=== PATIENT | female | born 1965 | race Caucasian/White ===

== ENCOUNTER 2021-02-04 06:35 | Day surgery (SDC) | payer OTHER ==
[2021-02-03 16:21] LABS: Absolute Lymphocytes (CBC) 1.8 K/uL (0.7-4.9); Basophils % 1.3 % (0-1.3); Hematocrit 39.5 % (36.0-45.0); Lymphocytes % 32.7 % (15.3-44.8); MPV 9.5 fL (7.6-11.3); RBC Red Blood Cell Count 4.59 M/uL (3.86-4.86)
[2021-02-03 16:24] LABS: Potassium 3.7 mmol/L (3.5-5.1)
--- NOTE | 2021-02-03 16:39 | RAD REPORT ---
EXAM DESCRIPTION: RAD - Chest Pa And Lat (2 Views) - 02/03/2021 4:13 pm CLINICAL HISTORY: preop, COPD COMPARISON: June 2019 TECHNIQUE: Frontal and lateral views of the chest were obtained. FINDINGS: The lungs are clear. Heart size is normal and central vasculature is within normal limit s. No pleural effusion or pneumothorax seen. No acute bony finding noted. No aortic abnormality. IMPRESSION: No acute cardiopulmonary process. No significant change from comparison study.
[2021-02-04] MEDS ORDERED: CEFOXITIN/SWI 1gm 1 GM/10 ML SYR ONE (07:09)
[2021-02-04] MEDS ORDERED: Ringers Lactate 1,000 ML IV ONE (07:09)
[2021-02-04] MEDS ORDERED: FENTANYL CITR 100 MCG/2 ML ONE (07:16)
[2021-02-04] MEDS ORDERED: propofoL 200 MG/20 ML VIAL IV ONE (07:16)
[2021-02-04] MEDS ORDERED: ROCURONIUM 50 MG/5 ML VIAL IV ONE (07:16)
[2021-02-04] MEDS ORDERED: MIDAZOLAM HCL 2 MG/2 ML INJ ONE (07:17)
[2021-02-04] MEDS ORDERED: LIDOCAINE 2% MPF 5 ML VIAL ONE (07:17)
[2021-02-04] MEDS ORDERED: dexAMETHasone 10 MG/ML VIAL ONE (07:17)
[2021-02-04] MEDS ORDERED: ONDANSETRON 4 MG/2 ML VIAL ONE (07:18)
[2021-02-04] MEDS ORDERED: SCOPOLAMINE HYDROBROMIDE PATCH TD ONE (07:40)
[2021-02-04] MEDS ORDERED: EPHEDRINE SULF 50 MG/ML VIAL ONE (08:07)
[2021-02-04] MEDS ORDERED: KETOROLAC 30 MG/ML INJ ONE (08:41)
[2021-02-04] MEDS ORDERED: GLYCOPYRROLATE 0.2 MG/ML SYR ONE (08:57)
[2021-02-04] MEDS ORDERED: NEOSTIGMINE 1 MG/ML -5 ML ONE (08:58)
[2021-02-04] MEDS ORDERED: TRAMADOL 37.5mg/APAP 325mg PER TAB ONE (10:26)
[2021-02-04 11:37] VITALS: BP 188/79; TEMP 97.3; O2SAT 99
--- NOTE | 2021-02-04 19:10 | OP ---
Date of Procedure: 02/04/2021 Surgeon: Harrison Wong MD [employer]sman: first deyvi Starks. Preoperative Diagnoses: Chronic cholecystitis and biliary dyskinesia. Postoperative Diagnoses: Chronic cholecystitis and biliary dyskinesia. Procedure: Laparoscopic cholecystectomy. Estimated Blood Loss: Minimal. Specimen: Gallbladder. Findings: As above. Anesthesia: General. Complications: None. Patient tolerated procedure in stable condition, taken to Recovery in good general condition. Description Of Procedure: The patient was brought to the OR and placed in supine position. General anesthesia begun. Patient was prepped and draped in the usual sterile fashion. Marcaine 0.5% infilt rated locally. A 15-blade was used to make a 1 cm supraumbilical midline incision. Subcutaneous tis giovanni divided. Fascia identified and divided. #1 Vicryl stay suture was placed. Peritoneal cavity wa s entered with sharp and blunt dissection. 12 mm trocar was placed into the peritoneal cavity under direct vision. Pneumoperitoneum was established. Then, three 5 trocars placed, 1 in the epigastrium just to the right of midline and 2 in the right subcostal region. Laparoscopy revealed chronic infl ammation of the gallbladder with omental adhesions that were taken down with sharp and blunt dissecti on. Bleeding controlled with cautery. The fundus identified, retracted superiorly. Infundibulum id entified, retracted inferolaterally. Cystic duct and cystic artery were clearly identified with blun t dissection. Clips placed. Both structures divided. Cautery used to remove the gallbladder from t he liver bed. Bleeding on the liver bed was controlled with cautery. Gallbladder was retrieved thro ugh the umbilicus via an EndoCatch bag. Right upper quadrant was irrigated. Effluent was clear. No evidence of bleeding or bile leakage appreciated. Subsequently, all trocars were removed under dire ct vision and then stay suture tied to each other to approximate the fascial defect. Subcu wounds ir rigated. Bleeding controlled with cautery. 3-0 chromic used to approximate the subcutaneous tissue and close the skin. Sterile dressing applied. Patient awakened and taken to recovery room in genera l condition. Discharge Note: The patient will go to day surgery and home when stable. Disposition: Home. Condition: Stable. Discharge Instructions: Resume home medications and diet. Activity as tolerated. No heavy lifting. Remove outer dressing in 2 days. Shower. Keep wound clean and dry. Follow up in my office in 2 w eeks. Call for appointment. Ultracet 1 tablet p.o. q.4 p.r.n. pain. Incentive spirometry is yolanda COPPOLA/KVNG Voice ID: [id number] Report ID: [id number]
--- NOTE | 2021-02-04 19:17 | EKG ---
Test Date: 2021-02-03 Test Time: 14:54:50 Academic Affairs Vice President: TYRELL MEASUREMENT RESULTS: Intervals: Rate: 91 MT: 166 QRSD: 92 QT: 364 QTc: 447 [place]: P: 77 MT: 166 QRS: 75 T: 78 INTERPRETIVE STATEMENTS: Normal sinus rhythm Normal ECG Compared to ECG 12/11/2020 13:00:59 No significant changes Electronically Signed On 02-04-21 19:13:55 CDT by Colt Gutierrez
== END 2021-02-04 11:10 | disposition home or self-care (01) ==
LOC: OR 06:35
PROVIDERS: ATTEND Surgery
PROC: 0FT44ZZ Resection of Gallbladder, Percutaneous Endoscopic Approach (ICD-10-PCS; principal; 2021-02-04 07:30)
DX: K81.1 Chronic cholecystitis (principal); K82.8 Other specified diseases of gallbladder
CPT/HCPCS: 93005; 85025; 80048; 36415; 88304; 71046; 47562; J2704; J2250; J3010; J1100; J2710; J7120; J2405

== ENCOUNTER 2022-07-23 13:03 | Emergency (ER) | payer OTHER ==
--- OUTSIDE RECORDS SUMMARY | 2022-07-23 13:07 | XMS REPORT | Continuity of Care Document ---
:1965 Author Organization [facility] t Address [address] [place] [address] Dr. [address]. [address] [place] [address] Care Team Providers Name Role Phone Luiz LUU, Janette Storm Primary Care Physician [phone] Hari Yo MD Attending Clinician RADIOLOGY Attending Clinician Unavailable Radiology Attending Clinician Unavailable DAPHNEY BOND III Attending Clinician Unavailable Doctor Unassigned, [place] Attending Clinician Unavailable JACQUELINE GEORGES Attending Clinician Unavailable Raj Lopez MD Attending Clinician Jacqueline Georges MD Attending Clinician JANETTE HANEY Attending Clinician Unavailable Janette Haney MD Attending Clinician [phone] GIANCARLO MERINO Attending Clinician Unavailable ALEJA WOODSON Attending Clinician Unavailable MD JAMISON Attending Clinician Unavailable KIMANI GRANT Attending Clinician Unavailable CONG ESQUIVEL Attending Clinician Unavailable Frankie, Adc Fam Pob I Attending Clinician Unavailable Cong Esquivel PA-C Attending Clinician IESHA SOLARES Admitting Clinician Unavailable Payers Payer Name Policy Type Policy Number Effective Date Expiration Date S [place] [id number] 2018 EMPLOYEE-[employer] 00:00:00 [employer] 2 [id number] 2021 00:00:00 Problems Condition Condition Condition Status Onset Resolution Last Treating Co mments Source Name Details Category Date Date Treatment Clinician Date Left hip Left hip Disease Active Kelse y pain - Not pain - Not 930 Se ybold Controlled Controlled 00:00: 00 Abnormal Abnormal Disease Active Kelse y gall gall 01-23 Seybold bladder bladder 00:00: diagnostic diagnostic 00 imaging - imaging - Unchanged Unchanged No known No known Disease Unive rs active active ity of problems problems [facility] Allergies, Adverse Reactions, Alerts Allergy Allergy Status Severity Reaction(s) Onset Inactive Treating Comm ents Source Name Type Date Date Clinician Codeine Propensi Active Other (See unknown Me thodi ty to Comments) 02-26 st adverse 00:00: Hospita reaction 00 l s to drug Codeine Propensi Active Other dizziness Radha ey ty to 01-23 Seybold adverse 00:00: reaction 00 s Codeine Drug Active Other - See dizziness U nivers Allergy comments 01-23 ity of 00:00: [address] CODEINE DRUG Active Med Dizziness Univer s INGREDI 01-23 ity of 00:00: [address] Social History Social Habit Start Date Stop Date Quantity Comments Source Exposure to Not sure [facility] SARS-CoV-2 (event) Medica l Branch Tobacco use and 2021-09-13 2021-09-13 Never used [facility] exposure 00:00:00 00:00:00 [facility] Sex Assigned At [address] [facility] 00:00:00 00:00:00 Smoking Status Start Date Stop Date Source Tobacco smoking consumption Meth [facility] unknown Never smoker [facility] Medications Ordered Filled Start Stop Current Ordering Indication Dosage Frequency Signature Comments Components Source Medication Medication Date Date Medication? Clinician (SIG) Name Name meloxicam 2021- No [id number] 15mg QD Take 1 Methodi (Mobic) 15 - 10-20 tablet (15 st mg tablet 00:00: 04:59 mg total) Ho spita 00 :00 by mouth l daily for 30 days. ibuprofen 2021- No [id number] 400mg U nivers (IBU) 09-13 ity of tablet 400 17:45: 16:42 [place] mg 00 :00 [facility] ibuprofen 2021- No [id number] 400mg 400 mg, Univers (IBU) 09-13 Oral, ity of tablet 400 17:45: 16:42 ONCE, 1 Zachary as mg 00 :00 dose, On [facility] Branch 09/13/21 at 1145, Routine vortioxetin Yes Trintellix Univers e 2-19 10 mg ity of (TRIN[place]LLIX 10:10: tablet [place] 10 mg Tab [address] [place] [address] vortioxetin Yes [employer] Univers e 2-19 10 mg ity of (TR[place] 10:10: [place] 10 mg Tab [address] [place] [address] vortioxetin Yes [employer] Univers e 2-19 10 mg ity of (TR[place] 10:10: [place] 10 mg Tab [address] [place] [address] HYDROcodone Yes hydrocodon Univers -acetaminop 2-19 e 5 ity of hen 5-325 10:10: mg-acetami [place] mg tablet 50 nophen 325 Medi mauri mg tablet Branch methocarbam Yes methocarba Univers oL 500 mg 2-19 mol 500 mg ity of tablet 10:10: tablet [address] HYDROcodone Yes hydrocodon Univers -acetaminop 2-19 e 5 ity of hen 5-325 10:10: mg-acetami [place] mg tablet 50 nophen 325 Medi mauri mg tablet Branch methocarbam Yes methocarba Univers oL 500 mg 2-19 mol 500 mg ity of tablet 10:10: tablet [address] HYDROcodone Yes hydrocodon Univers -acetaminop 2-19 e 5 ity of hen 5-325 10:10: mg-acetami [place] mg tablet 50 nophen 325 Medi mauri mg tablet Branch methocarbam Yes methocarba Univers oL 500 mg 2-19 mol 500 mg ity of tablet 10:10: tablet [address] bromphenira Yes [id number] 5mL Take 5 mL Univers mine-pseudo 2-19 by mouth 4 it y of ephedrine-D 00:00: (four[place] (BROMFED 00 times Medical DM) 2-30-10 daily as Bran ch mg/5 mL needed for syrup Congestion /Allergies . bromphenira 0 Yes [id number] 5mL Take 5 mL Univers mine-pseudo 2-19 by mouth 4 it y of ephedrine-D 00:00: (four[place] (BROMFED 00 times Medical DM) 2-30-10 daily as Bran ch mg/5 mL needed for syrup Congestion /Allergies . bromphenira 0 Yes [id number] 5mL Take 5 mL Univers mine-pseudo 2-19 by mouth 4 it y of ephedrine-D 00:00: (four[place] (BROMFED 00 times Medical DM) 2-30-10 daily as Bran ch mg/5 mL needed for syrup Congestion /Allergies . FLUoxetine Yes Univers 20 mg 1-15 ity of capsule 00:00: [address] FLUoxetine Yes Univers 20 mg 1-15 ity of capsule 00:00: [address] FLUoxetine Yes Univers 20 mg 1-15 ity of capsule 00:00: [address] Dexlansopra Yes Dexilant Ke lsey zole 1-04 60 mg Seybold (Dexilant) 16:05: capsule, 60 MG oral 36 delayed Delayed release Release TAKE ONE Capsule (1) CAPSULE(S) BY MOUTH ONCE A DAY. Montelukast Yes 1{each} 1 each K elsey (SINGULAIR) 1-04 daily Seybold 10 MG oral 16:05: Tablet 36 tablet Estradiol Yes Louise 0.05 1-04 Seybold MG/24HR 16:05: transdermal 36 PATCH BIWEEKLY Levocetiriz Yes Louise yan 1-04 Seybold Dihydrochlo 16:05: ride 5 MG 36 oral Tablet amoxicillin Yes TAKE ONE Un filiberto -clavulanat 1-04 (1) ity of e 875-125 00:00: TABLET(S) Zachary as mg per 00 BY MOUTH Medical tablet TWICE A Branch DAY FOR 14 DAYS. amoxicillin Yes TAKE ONE Un filiberto -clavulanat 1-04 (1) ity of e 875-125 00:00: TABLET(S) Zachary as mg per 00 BY MOUTH Medical tablet TWICE A Branch DAY FOR 14 DAYS. amoxicillin Yes TAKE ONE Un filiberto -clavulanat 1-04 (1) ity of e 875-125 00:00: TABLET(S) Zachary as mg per 00 BY MOUTH Medical tablet TWICE A Branch DAY FOR 14 DAYS. Amoxicillin Yes [id number] 1{tbl} Take 1 Louise -Pot 1-04 tablet by Seybold Clavulanate 00:00: mouth 2 875-125 MG 00 times oral Tablet daily buPROPion 2020-07 Yes Univers XL 150 mg 2-26 ity of 24 hr 00:00: [place] tablet [facility] buPROPion 2020-07 Yes Univers XL 150 mg 2-26 ity of 24 hr 00:00: [place] tablet [facility] buPROPion 2020-07 Yes Univers XL 150 mg 2-26 ity of 24 hr 00:00: [place] tablet [facility] estradioL 2020-07 Yes Univers 0.5 mg 2-07 ity of tablet 00:00: [facility] estradioL 2020-07 Yes Univers 0.5 mg 2-07 ity of tablet 00:00: [facility] estradioL 2020-07 Yes Univers 0.5 mg 2-07 ity of tablet 00:00: [facility] rosuvastati 2020-07 Yes Univer s n 5 mg 2-03 ity of tablet 00:00: [facility] rosuvastati 2020-07 Yes Univer s n 5 mg 2-03 ity of tablet 00:00: [facility] rosuvastati 2020-07 Yes Univer s n 5 mg 2-03 ity of tablet 00:00: [facility] DEXILANT 60 2020-07 Yes Univer s mg capsule 2-01 ity of 00:00: [facility] diclofenac 2020-07 Yes Univers 75 mg EC 2-01 ity of tablet 00:00: [facility] levocetiriz 2020-07 Yes Univer s ine 5 mg 2-01 ity of tablet 00:00: [place] 00 [facility] montelukast 2020-07 Yes Univer s 10 mg 2-01 ity of tablet 00:00: [place] [facility] DEXILANT 60 2020-07 Yes Univer s mg capsule 2-01 ity of 00:00: [address] diclofenac 2020-07 Yes Univers 75 mg EC 2-01 ity of tablet 00:00: [address] levocetiriz 2020-07 Yes Univer s ine 5 mg 2-01 ity of tablet 00:00: [place] [facility] montelukast 2020-07 Yes Univer s 10 mg 2-01 ity of tablet 00:00: [address] DEXILANT 60 2020-07 Yes Univer s mg capsule 2-01 ity of 00:00: [address] diclofenac 2020-07 Yes Univers 75 mg EC 2-01 ity of tablet 00:00: [address] levocetiriz 2020-07 Yes Univer s ine 5 mg 2-01 ity of tablet 00:00: [address] montelukast 2020-07 Yes Univer s 10 mg 2-01 ity of tablet 00:00: [address] Bupropion 2020-07 Yes TAKE 1 Louise HCL XL 150 2-01 TABLET Seybold MG OR TB24 00:00: DAILY 00 Fluoxetine 2020-07 Yes TAKE 1 Kelse y HCl 20 MG 2-01 CAPSULE Seybold oral 00:00: DAILY Capsule 00 Rosuvastati 2020-07 Yes TAKE 1 Radha ey n Calcium 5 2-01 TABLET Seybol d MG oral 00:00: DAILY Tablet 00 Dexlansopra Yes Dexilant Ke lsey zole 9-30 60 mg Seybold (Dexilant) 09:42: capsule, 60 MG oral 13 delayed Delayed release Release TAKE ONE Capsule (1) CAPSULE(S) BY MOUTH ONCE A DAY. Montelukast Yes 1{each} 1 each K elsey (SINGULAIR) 9-30 daily Seybold 10 MG oral 09:42: Tablet 13 tablet Estradiol Yes Louise 0.05 9-30 Seybold MG/24HR 09:42: transdermal 13 PATCH BIWEEKLY Levocetiriz Yes Louise ine 9-30 Seybold Dihydrochlo 09:42: ride 5 MG 13 oral Tablet Ibuprofen-F 2020-0 Yes [id number] 1{tbl} Q8H Take 1 Louise amotidine 9-30 tablet by Seybo ld 800-26.6 MG 00:00: mouth oral Tablet 00 every 8 hours as needed Ibuprofen-F 202-0 Yes [id number] 1{tbl} Q8H Take 1 Louise amotidine 9-30 tablet by Seybo ld 800-26.6 MG 00:00: mouth oral Tablet 00 every 8 hours as needed Azithromyci 202-0 2021- No [id number] Take 2 Louise n 250 MG 9-30 10-06 tablets by Seyb old oral Tablet 00:00: 04:59 mouth on 00 :00 day 1 then 1 tablet by mouth daily for 4 days thereafter . methylPREDN 1-0 Yes Take by Uni vers ISolone 4 9-03 mouth. ity of mg tablets 00:00: [address] methylPREDN 1-0 Yes Take by Uni vers ISolone 4 9-03 mouth. ity of mg tablets 00:00: [address] methylPREDN 2020-0 Yes Take by Uni vers ISolone 4 9-03 mouth. ity of mg tablets 00:00: [address] methylPREDN 1-0 Yes [id number] 1{frankie} Take 1 frankie Gil ISolone 4 9-03 by mouth Seybol d MG oral 00:00: See Admin Tablet 00 Instructio Therapy ns Use as Pack directed methylPREDN 1-0 Yes [id number] 1{frankie} Take 1 frankie Gil ISolone 4 9-03 by mouth Seybol d MG oral 00:00: See Admin Tablet 00 Instructio Therapy ns Use as Pack directed doxycycline 2020-0 Yes 100mg Take 100 U nivers hyclate 100 8-21 mg by ity of mg tablet 00:00: mouth. [address] Branch dextrometho 2020-0 Yes 1{tbl} Take 1 Un filiberto rphan-guaif 8-21 tablet by ity of enesin 00:00: mouth [place] 30-600 mg 00 every 12 Medica l per tablet (twelve) Branc h hours. doxycycline 2020-0 Yes 100mg Take 100 U nivers hyclate 100 8-21 mg by ity of mg tablet 00:00: mouth. [place] [address] Medical Branch dextrometho 2020-0 Yes 1{tbl} Take 1 Un filiberto rphan-guaif 8-21 tablet by ity of enesin 00:00: mouth [place] 30-600 mg 00 every 12 Medica l per tablet (twelve) Branc h hours. doxycycline 2020-0 Yes 100mg Take 100 U nivers hyclate 100 8-21 mg by ity of mg tablet 00:00: mouth. [place] [address] Medical Branch dextrometho 2020-0 Yes 1{tbl} Take 1 Un filiberto rphan-guaif 8-21 tablet by ity of enesin 00:00: mouth [place] 30-600 mg 00 every 12 Medica l per tablet (twelve) Branc h hours. Dextrometho 2020-0 Yes [id number] 1{tbl} Take 1 Louise rphan-guaiF 8-21 tablet by Sey bold ENesin 00:00: mouth (Mucinex 00 every 12 DM) 30-600 hours MG oral Tablet 12 Hour Sustained Release Doxycycline 2020-0 Yes [id number] 100mg Take 1 Louise Hyclate 100 8-21 tablet Seybol d MG oral 00:00: (100 mg Tablet 00 total) by mouth 2 times daily Dextrometho 2020-0 Yes [id number] 1{tbl} Take 1 Louise rphan-guaiF 8-21 tablet by Sey bold ENesin 00:00: mouth (Mucinex 00 every 12 DM) 30-600 hours MG oral Tablet 12 Hour Sustained Release Doxycycline 2020-0 Yes [id number] 100mg Take 1 Louise Hyclate 100 8-21 tablet Seybol d MG oral 00:00: (100 mg Tablet 00 total) by mouth 2 times daily Estradiol 2020-0 Yes Louise 0.5 MG oral 6-30 Seybold Tablet 00:00: 00 Estradiol 2020-0 Yes Louise 0.5 MG oral 6-30 Seybold Tablet 00:00: 00 fluticasone 2020-0 Yes Jeremy s -umeclidin- 5-25 ity of vilanter 00:00: [place] (TRELEGY 00 Medical ELLIPTA) Branch 100-62.5-25 mcg DsDv fluticasone 2021-0 Yes Univer s -umeclidin- 5-25 ity of vilanter 00:00: [place] (TRELEGY 00 Medical ELLIPTA) Branch 100-62.5-25 mcg DsDv fluticasone 0 Yes Univer s -umeclidin- 5-25 ity of vilanter 00:00: [place] (TRELEGY 00 Medical ELLIPTA) Branch 100-62.5-25 mcg DsDv Trelegy 0 Yes Louise Ellipta 5-25 Seybold 100-62.5-25 00:00: MCG/INH 00 inhalation AEROSOL POWDER, BREATH ACTIVATED Trelegy Yes Louise Ellipta 5-25 Seybold 100-62.5-25 00:00: MCG/INH 00 inhalation AEROSOL POWDER, BREATH ACTIVATED Rosuvastati 0 Yes 5mg Take 1 Radha ey n Calcium 5 5-24 tablet (5 Sey bold MG oral 00:00: mg total) Tablet 00 by mouth daily Bupropion 0 Yes 150mg Take 1 Kelse y HCL XL 150 5-24 tablet Seybold MG OR TB24 00:00: (150 mg 00 total) by mouth daily Fluoxetine 0 Yes 20mg Take 1 Kelse y HCl 20 MG 5-24 capsule Seybold oral 00:00: (20 mg Capsule 00 total) by mouth daily Diclofenac 2020-0 Yes Louise Sodium 75 5-24 Seybold MG oral 00:00: Tablet 00 Delayed Response Levocetiriz 0 Yes Louise ine 5-24 Seybold Dihydrochlo 00:00: ride 5 MG 00 oral Tablet Diclofenac 2020-0 Yes Louise Sodium 75 5-24 Seybold MG oral 00:00: Tablet 00 Delayed Response Levocetiriz 2020-0 Yes Louise ine 5-24 Seybold Dihydrochlo 00:00: ride 5 MG 00 oral Tablet Fluticasone 2019-0 Yes Louise -Umeclidin- 1-08 Seybold Vilant 00:00: (Trelegy 00 Ellipta) 100-62.5-25 MCG/INH inhalation AEROSOL POWDER, BREATH ACTIVATED Fluticasone 2019-0 Yes Louise -Umeclidin- 1-08 Seybold Vilant 00:00: (Trelegy 00 Ellipta) 100-62.5-25 MCG/INH inhalation AEROSOL POWDER, BREATH ACTIVATED Immunizations Ordered Immunization Filled Immunization Date Status Commen ts Source Name Name Shingles IM 2020-05-06 Completed Louise Seybol d (Shingrix) 00:00:00 Shingles IM 2020-05-06 Completed Louise Seybol d (Shingrix) 00:00:00 Influenza Virus 2020-04-18 Completed Louise Se ybold Vaccine, age 6 00:00:00 months and up Shingles IM 2020-04-18 Completed Louise Seybol d (Shingrix) 00:00:00 Influenza Virus 2020-04-18 Completed Louise Se ybold Vaccine, age 6 00:00:00 months and up Shingles IM 2020-04-18 Completed Louise Seybol d (Shingrix) 00:00:00 Influenza Virus 2019-05-01 Completed Louise Se ybold Vaccine, age 6 00:00:00 months and up Influenza Virus 2019-05-01 Completed Louise Se ybold Vaccine, age 6 00:00:00 months and up Influenza Virus 2018-07-05 Completed Louise Se ybold Vaccine, age 6 00:00:00 months and up Influenza Virus 2018-07-05 Completed Louise Se ybold Vaccine, age 6 00:00:00 months and up Influenza Virus 2015-04-25 Completed Louise Se ybold Vaccine, Unspecified 00:00:00 Formulation Influenza Virus 2015-04-25 Completed Louise Se ybold Vaccine, Unspecified 00:00:00 Formulation Vital Signs Vital Name Observation Time Observation Value Comments Source Systolic blood 2021-09-13 16:09:00 123 mm[Hg] Univer sity of pressure [facility] Diastolic blood 2021-09-13 16:09:00 83 mm[Hg] Unive rsity of pressure [facility] Heart rate 2021-09-13 16:09:00 108 /min [facility] Body temperature 2021-09-13 16:09:00 38.22 [facility] Respiratory rate 2021-09-13 16:09:00 16 /min [facility] Body height 2021-09-13 16:09:00 167.6 cm [facility] Body weight 2021-09-13 16:09:00 79.833 kg [facility] BMI 2021-09-13 16:09:00 28.41 kg/m2 [facility] Oxygen saturation in 2021-09-13 16:09:00 97 /min [facility] blood by [facility] Pulse oximetry Branch Systolic blood 2021-07-29 22:00:00 110 mm[Hg] Louise Seybold pressure Diastolic blood 2021-07-29 22:00:00 80 mm[Hg] Kelse y Seybold pressure Heart rate 2021-07-29 22:00:00 95 /min Louise S eybold Body temperature 2021-07-29 22:00:00 36.5 Erlinda Radha ey Seybold Respiratory rate 2021-07-29 22:00:00 16 /min Radha ey Seybold Body height 2021-07-29 22:00:00 167.6 cm Louise S eybold Body weight 2021-07-29 22:00:00 79.833 kg Louise S eybold BMI 2021-07-29 22:00:00 28.41 kg/m2 Louise S eybold Body weight 2021-04-24 14:36:00 81.194 kg Louise S eybold BMI 2021-04-24 14:36:00 28.89 kg/m2 Louise S eybold Systolic blood 2021-04-24 14:36:00 108 mm[Hg] Louise Seybold pressure Diastolic blood 2021-04-24 14:36:00 80 mm[Hg] Kelse y Seybold pressure Heart rate 2021-04-24 14:36:00 129 /min Louise S eybold Body temperature 2021-04-24 14:36:00 36.89 Erlinda Radha ey Seybold Respiratory rate 2021-04-24 14:36:00 16 /min Radha ey Seybold Body height 2021-04-24 14:36:00 167.6 cm Louise S eybold Body height 2022-02-26 19:15:00 170.2 cm [facility] Body weight 2022-02-26 19:15:00 82.101 kg [facility] BMI 2022-02-26 19:15:00 28.35 kg/m2 [facility] Procedures Procedure Date / Time Performed Performing Clinician Deo schneider MRI LOWER EXTREMITY 2022-03-11 23:08:50 Hari Yo [facility] EXTERNAL STUDY XR KNEE AP STANDING 2022-02-26 19:27:29 [facility] BILATERAL XR KNEE 3 VW RIGHT 2022-01-05 18:16:49 Iesha Solares [facility] XR LOWER EXTREMITY 2022-01-05 18:04:[address] [facility] EXTERNAL STUDY ASSIGNMENT OF BENEFITS 2021-09-19 18:59:08 Doctor Unassigned, No [facility] POCT MOLECULAR FLU 2021-09-13 16:23:00 Jacqueline Georges [facility] Plan of Care Planned Activity Planned Date Details Comments Source Future Scheduled 2022-07-07 Hepatitis C screening [facility] Test 12:47:45 (procedure) [code = 893999640] Future Scheduled 2022-07-[address] [facility] Test 12:47:45 malignant neoplasm of cervix (procedure) [code = 384282231] Future Scheduled 2022-07-[address] [facility] Test 12:47:45 SCREENING [code = BREAST CANCER SCREENING] Future Scheduled 2022-07-07 COLONOSCOPY SCREENING [facility] Test 12:47:45 [code = COLONOSCOPY SCREENING] Future Scheduled 2022-07-07 SHINGLES VACCINES (1 Met [facility] Test 12:47:45 of 2) [code = SHINGLES VACCINES (1 of 2)] Future Scheduled 2022-07-07 COVID-19 VACCINE (4 - [facility] Test 12:47:45 Booster for Moderna series) [code = COVID-19 VACCINE (4 - Booster for Moderna series)] Future Scheduled 2022-07-07 INFLUENZA VACCINE [facility] Test 12:47:45 [code = INFLUENZA VACCINE] Encounters Start End Encounter Admission Attending Care Care Encounter Source Date/Time Date/Time Type Type Clinicians Facility Department ID 2022-04-13 2022-04-13 [facility] Hari Yo 1.2.840.1 [id number] Methodi 15:44:46 23:59:00 Encounter A. [address]0939.1.[address] 3.430.2.7 Hospit a .3.092008 l .8 2022-04-13 2022-04-13 Office Hari Yo 1.2.840.1 [id number] Methodi 15:30:00 15:37:41 Visit A. [address]6786.1.[address] 3.430.2.7 Hospit a .3.772599 l .8 2022-04-13 2022-04-13 Orders Hari Yo 1.2.840.1 [id number] Methodi 00:00:00 00:00:00 Only A. [address]91.1.[address] 3.430.2.7 Hospit a .3.215881 l .8 2022-04-13 2022-04-13 Travel 1.2.840.1 1.2.735.868 [id number] Methodi 00:00:00 00:00:[address] 3.430.2.7 0.2.7.3.698 Ho spita .3.320279 084.8 l .8 2022-04-13 2022-04-13 Outpatient HARI YO [facility] [id number] Groom 00:00:00 00:00:[address] 2022-04-13 2022-04-13 Outpatient HARI YO [facility] [id number] Groom 00:00:00 00:00:[address] 2022-03-24 2022-03-24 Travel 1.2.840.1 1.2.625.260 [id number] Methodi 00:00:00 00:00:[address] 3.430.2.7 0.2.7.3.698 Ho spita .3.601826 084.8 l .8 2022-02-26 2022-02-26 Hospital Hari Yo 1.2.840.1 [id number] Methodi 14:19:43 23:59:00 Encounter A. 68623.1.[address] 3.430.2.7 Hospit a .3.347518 l .8 2022-02-26 2022-02-26 Office Yo, Hari 1.2.840.1 [id number] Methodi 14:20:00 15:04:30 Visit A. 50069.1.[address] 3.430.2.7 Hospit a .3.637010 l .8 2022-02-26 2022-02-26 Travel 1.2.840.1 1.2.515.383 [id number] Methodi 00:00:00 00:00:[address] 3.430.2.7 0.2.7.3.698 Ho spita .3.805243 084.8 l .8 2022-02-26 2022-02-26 Orders Yo, Hari 1.2.840.1 [id number] Methodi 00:00:00 00:00:[address] A[address] 78983.1.[address] 3.430.2.7 Hospit a .3.519917 l .8 2022-02-26 2022-02-26 Outpatient YO, HARI [facility] [id number] Groom 00:00:00 00:00:[address] 2022-02-26 2022-02-26 Outpatient YO, HARI [facility] [id number] Groom 00:00:00 00:00:[address] 2022-02-26 2022-02-26 Outpatient YO, HARI [facility] [id number] Groom 00:00:00 00:00:[address] 2022-02-17 2022-02-17 Travel 1.2.840.1 1.2.592.392 [id number] Methodi 00:00:00 00:00:[address] 3.430.2.7 0.2.7.3.698 Ho spita .3.488916 084.8 l .8 2022-01-05 2022-01-05 Outpatient R RADIOLOGY [facility] [id number] Univers 13:06:13 23:59:00 ity of [facility] 2022-01-05 2022-01-05 Hospital Radiology [facility] 1.2.840.114 [id number] Univers 13:00:00 23:59:00 Encounter MADDY 350.1.13.10 ity [facility] 4.2.7.2.686 [place] [facility] [id number] [facility] 807 Branch 2021-09-19 2021-09-19 [facility] [id number] Univers 13:15:00 13:15:00 DAPHNEY ity [facility] 2021-09-19 2021-09-19 Orders Doctor CONG 1.2.840.114 [id number] Univers 00:00:00 00:00:00 Only Unassigned, LUZ MARIA 350.1.13.10 ity of [place] [facility] 4.2.7.2.686 Zachary as [id number] [facility] 009 Branch 2021-09-13 2021-09-13 Outpatient [facility] [id number] Univers 10:20:00 10:45:[facility] 2021-09-13 2021-09-13 Urgent Raj Lopez [facility] 1.2.840.114 [id number] Univers 10:20:00 10:45:51 [facility] 350.1.13.10 ity [facility] 4.2.7.2.686 Zachary as OLY?BLEA [phone] [address] MEDICAL OFFICE BUILDING 2021-09-13 2021-09-13 Outpatient [facility] [id number] Univers 10:20:00 10:45:51 [facility] 2021-08-15 2021-08-15 Outpatient LOUISE HANEY [id number] Louise 00:00:00 00:00:00 JANETTE diaz 2021-07-29 2021-07-29 Office Abdulkadir Haney 1.2.840.114 [id number] Louise 16:00:00 16:15:00 Visit Janette Adhikari 350.1.13.13 Se sissy Storm 1.2.7.2.686 [id number] 2021-06-25 2021-06-25 Outpatient GIANCARLO MERINO LOUISE GIL [id number] Louise 00:00:00 00:00:00 Seybol d 2021-04-24 2021-04-24 Office CroftonAbdulkadir champion 1.2.840.114 [id number] Louise 09:30:01 10:00:01 Visit Janette Adhikari 350.1.13.13 Se carolinahector Emeterio 1.2.7.2.686 [id number] 2021-03-28 2021-03-28 Outpatient LOUISE HANEY [id number] Louise 16:00:00 16:00:00 JANETTE Seybol d 2021-03-28 2021-03-28 Outpatient LOUISE HANEY [id number] Louise 14:00:00 14:00:00 JANETTE Seybol d 2021-03-15 2021-03-15 Outpatient LOUISE WOODSON [id number] Louise 12:20:00 12:20:00 ALEJA Seybol d 2021-03-15 2021-03-15 Outpatient TANI LOUISE GIL [id number] Louise 00:00:00 00:00:00 MD CRISTI Seybol d 2021-02-03 2021-02-03 Outpatient LOUISE GRANT [id number] Louise 00:00:00 00:00:00 KIMANI Seybol d 2020-06-15 2020-06-15 Outpatient R [facility] [id number] Univers 11:00:00 11:00:00 [facility] 2020-06-13 2020-06-13 Outpatient R ZANDRA [facility] [id number] [employer] 19:00:00 19:00:00 CONG maren [facility] 2020-06-13 2020-06-13 Laboratory Lab, Adc Fam Pob I [facility] 1.2. [id number] [facility] 17:48:39 18:08:39 Only Cong Esquivel [id number] [facility] [id number] Zachary as Professio [phone] [address] Office Building One Results Test Description Test Time Test Comments Results Result Comments Source POCT MOLECULAR FLU 2021-09-13 16:34:29 Test Item Value Reference Range Interpretation Comme nts POCT Molecular FluA (test code = 05545-7) Negative Negative POCT Molecular FluB (test code = 72248-2) Negative Negative Lab Interpretation (test code = 99688-7) [facility]
[2022-07-23] MEDS ORDERED: predniSONE 20 MG TAB ONE (14:08)
[2022-07-23] MEDS ORDERED: IPRATROPIUM BROM 0.5MG/2.5ML ONE (14:08)
[2022-07-23] MEDS ORDERED: ALBUTEROL 2.5 MG/3 ML NEB SOL ONE (14:08)
--- NOTE | 2022-07-23 14:32 | RAD REPORT ---
EXAM DESCRIPTION: RAD - Chest Pa And Lat (2 Views) - 07/23/2022 2:27 pm CLINICAL HISTORY: Cough COMPARISON: Chest Pa And Lat (2 Views) dated 02/03/2021; Chest Pa And Lat (2 Views) dated 07/10/2019; Chest Pa And Lat (2 Views) dated 11/01/2016; CHEST PA AND LAT 2 VIEW dated 09/19/2013 FINDINGS: Lines: None. Lungs: No evidence of edema or pneumonia. Pleural: No significant pleural effusions or pneumothorax. Cardiac: The heart size is within normal limits. Mediastinum: Within normal limits. Bones: No acute fractures. Other: None IMPRESSION: No acute cardiopulmonary disease.
[2022-07-23 14:36] LABS: SARS-COV-2 RT PCR NEGATIVE (NEGATIVE)
--- NOTE | 2022-07-23 15:23 | ER ---
Nurse's Notes [facility] Name: Kirstin Pena Age: 56 yrs Sex: Female : 1965 Arrival Date: 07/23/2022 Time: 13:07 Bed 11 Private MD: Natalie Carty Diagnosis: Unspecified asthma with (acute) exacerbation Presentation: 07/23 13:41 Chief complaint: Patient states: SOB SINCE Y/D. Coronavirus screen: At this time, the bp client does not indicate any symptoms associated with coronavirus-19. Ebola Screen: No symptoms or risks identified at this time. Initial Sepsis Screen: Does the patient meet any 2 criteria? No. Patient's initial sepsis screen is negative. Does the patient have a suspected source of infection? No. Patient's initial sepsis screen is negative. Risk Assessment: Do you want to hurt yourself or someone else? Patient reports no desire to harm self or others. Onset of symptoms was July 22, 2022 at 06:00. Care prior to arrival: Medication(s) given: Albuterol Neb x 1, Atrovent Neb x 1. 13:41 Method Of Arrival: Ambulatory bp 13:41 Acuity: TEOFILO 3 bp Historical: - Allergies: 13:48 Codeine; bp - Home Meds: 13:48 Albuterol Inhl [Active]; Bupropion Oral [Active]; fluoxetine 10 mg Oral cap 2 caps once bp daily [Active]; Singulair Oral [Active]; Xyzal Oral [Active]; - PMHx: 13:48 Asthma; Depression; GERD; bp - Immunization history:: Adult Immunizations up to date. - Social history:: Smoking status: Patient denies any tobacco usage or history of. Assessment: 15:53 Reassessment: Patient appears in no apparent distress at this time. Patient and/or ss family updated on plan of care and expected duration. Pain level reassessed. Patient states feeling better. Patient states symptoms have improved. Vital Signs: 13:41 BP 113 / 82; Pulse 94; Resp 20; Temp 98; Pulse Ox 100% ; Weight 76.2 kg; Height 5 ft. 7 bp in. (170.18 cm); 13:41 Body Mass Index 26.31 (76.20 kg, 170.18 cm) bp ED Course: 13:07 Patient arrived in ED. am2 13:07 Natalie Carty MD is Private Physician. am2 13:21 Sheri Adhikari FNP-C is [facility]. kb 13:21 Disha Ace MD is Attending Physician. kb 13:47 Triage completed. bp 13:48 Arm band placed on. bp 14:28 Chest Pa And Lat (2 Views) XRAY In Process Unspecified. EDMS 15:52 Katerina Barrera, RN is Primary Nurse. ss 15:52 No provider procedures requiring assistance completed. Patient did not have IV access ss during this emergency room visit. Administered Medications: 14:10 Drug: DuoNeb (albuterol 2.5 mg, ipratropium 0.5 mg) (3:1) (2.5 mg - 0.5 mg) 3 ml Route: bp Nebulizer; 14:10 Drug: predniSONE 40 mg Route: PO; bp Outcome: 15:23 Discharge ordered by MD. kb 15:52 Discharged to home ambulatory. ss 15:52 Condition: good 15:52 Discharge instructions given to patient, Instructed on discharge instructions, follow up and referral plans. Demonstrated understanding of instructions, follow-up care. 15:53 Patient left the ED. ss Signatures: Dispatcher [employer] EDNM Sheri Adhikari FNP-C [employer] INSPECTOR-Prestonb Katerina Barrera, BERNABE RN Diane Garcia am2 Burton Quiroga, RN RN bp
--- NOTE | 2022-07-23 15:23 | EDPHYS ---
Physician Documentation [facility] Name: Kirstin Pena Age: 56 yrs Sex: Female : 1965 Arrival Date: 07/23/2022 Time: 13:07 Bed 11 Private MD: Natalie Carty ED Physician Disha Ace HPI: 07/23 15:13 This 56 yrs old Female presents to ER via Ambulatory with complaints of Shortness Of kb Breath. 15:13 The patient presents to the emergency department with wheezing, Current therapy: kb albuterol inhaler, the patient was reported to have non-productive cough, trouble breathing. Onset: The symptoms/episode began/occurred yesterday. Modifying factors: The symptoms are alleviated by nothing, the symptoms are aggravated by nothing. Associated signs and symptoms: The patient has no apparent associated signs or symptoms. Severity of symptoms: At their worst the symptoms were moderate in the emergency department the symptoms are unchanged. The patient has experienced similar episodes in the past. The patient has not recently seen a physician. Pt reports cough, wheezing and shortness of breath that started yesterday. . Historical: - Allergies: 13:48 Codeine; bp - Home Meds: 13:48 Albuterol Inhl [Active]; Bupropion Oral [Active]; fluoxetine 10 mg Oral cap 2 caps once bp daily [Active]; Singulair Oral [Active]; Xyzal Oral [Active]; - PMHx: 13:48 Asthma; Depression; GERD; bp - Immunization history:: Adult Immunizations up to date. - Social history:: Smoking status: Patient denies any tobacco usage or history of. ROS: 15:12 Constitutional: Negative for fever, chills, and weight loss. kb 15:12 Respiratory: Positive for cough, shortness of breath, wheezing. 15:12 All other systems are negative. Exam: 15:12 Constitutional: This is a well developed, well nourished patient who is awake, alert, kb and in no acute distress. Head/Face: Normocephalic, atraumatic. ENT: Moist Mucous membranes Cardiovascular: Regular rate and rhythm with a normal S1 and S2. No gallops, murmurs, or rubs. No pulse deficits. Abdomen/GI: Soft, non-tender. No distention Skin: Warm, dry with normal turgor. Normal color. MS/ Extremity: Pulses equal, no cyanosis. Neurovascular intact. Full, normal range of motion. Neuro: Awake and alert, GCS 15, oriented to person, place, time, and situation. Moves all extremities. Normal gait. Psych: Awake, alert, with orientation to person, place and time. Behavior, mood, and affect are within normal limits. 15:12 Respiratory: the patient does not display signs of respiratory distress, Respirations: normal, Breath sounds: wheezing: expiratory that is mild, is heard in the left lower lobe and left posterior lower lobe. Vital Signs: 13:41 BP 113 / 82; Pulse 94; Resp 20; Temp 98; Pulse Ox 100% ; Weight 76.2 kg; Height 5 ft. 7 bp in. (170.18 cm); 13:41 Body Mass Index 26.31 (76.20 kg, 170.18 cm) bp MDM: 13:49 Patient medically screened. kb 15:09 Data reviewed: vital signs, nurses notes. Data interpreted: Pulse oximetry: on room air kb is 100 %. Interpretation: normal. Counseling: I had a detailed discussion with the patient and/or guardian regarding: the historical points, exam findings, and any diagnostic results supporting the discharge/admit diagnosis, lab results, radiology results, the need for outpatient follow up, a family practitioner, to return to the emergency department if symptoms worsen or persist or if there are any questions or concerns that arise at home. 15:23 ED course: Pt reports PCP called in antibiotics, a steroids and an inhaler. They are kb all ready for pickup at the pharmacy. 07/23 13:44 Order name: COVID-19/FLU A+B; Complete Time: 14:46 kb 07/23 13:44 Order name: Chest Pa And Lat (2 Views) XRAY; Complete Time: 14:46 kb Administered Medications: 14:10 Drug: DuoNeb (albuterol 2.5 mg, ipratropium 0.5 mg) (3:1) (2.5 mg - 0.5 mg) 3 ml Route: bp Nebulizer; 14:10 Drug: predniSONE 40 mg Route: PO; bp Disposition Summary: 07/23/22 15:23 Discharge Ordered Location: Home kb Condition: Stable kb Diagnosis - Unspecified asthma with (acute) exacerbation kb Followup: kb - With: Emergency Department - When: As needed - Reason: Worsening of condition Followup: kb - With: Private Physician - When: 2 - 3 days - Reason: Recheck today's complaints, Continuance of care, Re-evaluation by your physician Discharge Instructions: - Discharge Summary Sheet kb - Asthma, Adult, [id number] kb Forms: - Medication Reconciliation Form kb - Thank You Letter kb - Antibiotic Education kb - Prescription Opioid Use kb Addendum: 07/27/2022 17:46 STAFF ATTESTATION STATEMENT: I was immediately available onsite in the emergency s d2 department for consultation in the care of this patient. I did not see or examine this patient. Disha Ace MD. Signatures: Dispatcher [employer] EDSheri Gallardo FNP-C FNP-Burton Ordaz, RN RN Disha Pelayo MD MD sd2
[2022-07-23 15:56] VITALS: BP 113/82; TEMP 98; O2SAT 100
== END 2022-07-23 15:53 | disposition home or self-care (01) ==
LOC: ER 13:03
DX: J45.901 Unspecified asthma with (acute) exacerbation (principal); Z20.822 Contact with and (suspected) exposure to COVID-19; Z88.5 Allergy status to narcotic agent
CPT/HCPCS: 0240U; 71046; 94640; 99284; J7512; J7613; J7644

== ENCOUNTER 2024-05-15 20:52 | Emergency (ER) | payer OTHER ==
[2024-05-15] MEDS ORDERED: IPRATROPIUM BROM 0.5MG/2.5ML ONE (21:31)
[2024-05-15] MEDS ORDERED: ALBUTEROL 2.5 MG/3 ML NEB SOL ONE (21:31)
[2024-05-15] MEDS ORDERED: METHYLPREDNISOLONE 125 MG INJ ONE (21:32)
[2024-05-15 21:40] LABS: Absolute Basophils 0.1 K/uL (0-0.5); Absolute Eosinophils 0.2 K/uL (0-0.5); Absolute Lymphocytes (CBC) 1.8 K/uL (0.7-4.9); Absolute Monocytes 0.5 K/uL (0.1-1.3); Absolute Neutrophil 4.2 K/uL (1.8-8.0); Eosinophils % 2.4 % (0-4.4); Hematocrit 34.5 % (36.0-45.0); Hemoglobin 11.8 g/dL (12.0-15.0); Lymphocytes % 26.4 % (15.3-44.8); MCH 29.8 pg (27.0-35.0); MCHC 34.2 g/dL (32.0-36.0); MCV 87.2 fL (80-100); MPV 8.8 fL (7.6-11.3); Monocytes % 7.4 % (3.3-12.3); Neutrophils % 62.8 % (41.7-73.7); Nucleated Red Blood Cells % 0.5 % (0-0); Platelets 205 thou/uL (152-406); RBC Red Blood Cell Count 3.96 M/uL (3.86-4.86); Red Cell Distribution Width 13.4 % (12.1-15.2)
[2024-05-15 21:56] LABS: Anion Gap 9.5 mEq/L (5.0-15.0); Potassium 3.5 mEq/L (3.5-5.1); Troponin High Sensitivity 4.2 pg/mL (<58.9)
--- NOTE | 2024-05-15 21:56 | RAD REPORT ---
Procedure: Chest Single View HISTORY: Shortness of breath COMPARISON: 2021 FINDINGS: The lungs appear clear of acute infiltrate. No significant pleural effusion noted. The heart is normal size. IMPRESSION: No acute abnormality is displayed.
[2024-05-15 21:58] LABS: SARS-CoV-2 Antigen CONTROL BLUE LINE VIS/BG OK; SARS-CoV-2 Antigen Rapid Res Negative (Negative)
--- NOTE | 2024-05-15 22:35 | ER ---
Nurse's Notes [facility] Name: Kirstin Pena Age: 58 yrs Sex: Female : 1965 Arrival Date: 05/15/2024 Time: 20:52 Bed 2 Private MD: Diagnosis: Acute bronchitis, unspecified Presentation: 05/15 20:57 Chief complaint: Patient states: Shortness of breath onset today. pt reports using cm10 inhaler with no relief. Coronavirus screen: Client denies travel out of the [place] in the last 14 days. Ebola Screen: Patient denies travel to an Ebola-affected area in the 21 days before illness onset. No symptoms or risks identified at this time. Initial Sepsis Screen: Does the patient meet any 2 criteria? RR > 20 per min. HR > 90 bpm. Does the patient have a suspected source of infection? No. Patient's initial sepsis screen is negative. Risk Assessment: Do you want to hurt yourself or someone else? Patient reports no desire to harm self or others. Onset of symptoms was May 15, 2024. 20:57 Method Of Arrival: Ambulatory cm10 20:57 Acuity: TEOFILO 3 cm10 Triage Assessment: 21:01 General: Appears in no apparent distress. uncomfortable, Behavior is calm, cooperative. cm10 Neuro: No deficits noted. Level of Consciousness is awake, alert, obeys commands, Oriented to person, place, time, situation, Appropriate for age. Historical: - Allergies: 20:58 Codeine; cm10 - Home Meds: 20:58 Singulair 10 mg oral tablet [Active]; dexlansoprazole 60 mg oral capsule,delayed cm10 release,biphasic 1 cap daily [Active]; rosuvastatin 5 mg oral tablet 1 tab daily [Active]; fluoxetine 10 mg Oral cap 1 cap daily [Active]; estradiol 0.5 mg oral tablet 1 tabs daily [Active]; levocetirizine 5 mg oral tablet 1 tab daily [Active]; bupropion HCl 300 mg oral Tablet, Extended Release 24 hr 1 tab daily [Active]; - PMHx: 20:58 Asthma; Depression; GERD; cm10 - Immunization history:: Adult Immunizations up to date. - Infectious Disease History:: Denies. - Social history:: Smoking status: Patient denies any tobacco usage or history of. Screenin:15 [facility] ED Fall Risk Assessment (Adult) History of falling in the last 3 months, bm8 including since admission No falls in past 3 months (0 pts) Confusion or Disorientation No (0 pts) Intoxicated or Sedated No (0 pts) Impaired Gait No (0 pts) Mobility Assist Device Used No (0 pt) Altered Elimination No (0 pt) Score/Fall Risk Level 0 - 2 = Low Risk Oriented to surroundings, Maintained a safe environment, Educated pt \T\ family on fall prevention, incl call for assistance when getting out of bed, Assessed \T\ reinforced patient's understanding of fall precautions, Hourly rounding (assess needs \T\ fall precautionary measures) done, Used ambulatory aids as needed (educated on \T\ assisted with), Used gait belt as appropriate. Abuse screen: Denies threats or abuse. Nutritional screening: No deficits noted. Tuberculosis screening: No symptoms or risk factors identified. Assessment: 21:14 Reassessment: Patient appears in no apparent distress at this time. Patient and/or bm8 family updated on plan of care and expected duration. Pain level reassessed. Patient is alert, oriented x 3, equal unlabored respirations, skin warm/dry/pink. General: Appears in no apparent distress. comfortable, Behavior is calm, cooperative, appropriate for age. Pain: Complains of pain in head Pain does not radiate. Pain currently is 5 out of 10 on a pain scale. Quality of pain is described as aching. Neuro: No deficits noted. Level of Consciousness is awake, alert, obeys commands, Oriented to person, place, time, situation, Appropriate for age. 21:15 Cardiovascular: Denies chest pain, Heart tones S1 S2 present Capillary refill < 3 bm8 seconds in bilateral fingers Patient's skin is warm and dry. Pulses are all present. Rhythm is sinus rhythm. Respiratory: Reports shortness of breath at rest cough that is non-productive, dry, Airway is patent Trachea midline Respiratory effort is even, unlabored, Respiratory pattern is regular, symmetrical, Breath sounds are clear bilaterally. Onset: The symptoms/episode began/occurred 1600 this afternoon, the patient has mild shortness of breath. GI: No signs and/or symptoms were reported involving the gastrointestinal system. : No signs and/or symptoms were reported regarding the genitourinary system. EENT: No signs and/or symptoms were reported regarding the EENT system. Derm: No signs and/or symptoms reported regarding the dermatologic system. Musculoskeletal: No signs and/or symptoms reported regarding the musculoskeletal system. 23:02 Reassessment: Patient appears in no apparent distress at this time. Patient and/or bm8 family updated on plan of care and expected duration. Pain level reassessed. Patient is alert, oriented x 3, equal unlabored respirations, skin warm/dry/pink. Patient denies pain at this time. Patient states feeling better. Patient states symptoms have improved. Vital Signs: 20:57 BP 117 / 76; Pulse 110; Resp 24; Temp 97.1(IR); Pulse Ox 100% ; Weight 79.83 kg; Height cm10 5 ft. 6 in. ; Pain 0/10; 21:15 BP 116 / 79; Pulse 95; Resp 18; Temp 97.1; Pulse Ox 95% ; Pain 5/10; bm8 23:02 BP 120 / 79; Pulse 105; Resp 18; Temp 97.2; Pulse Ox 100% ; Pain 0/10; bm8 20:57 Body Mass Index 28.41 (79.83 kg, 167.64 cm) cm10 20:57 Pain Scale: Adult cm10 21:15 Pain Scale: Adult bm8 23:02 Pain Scale: Adult bm8 [place] Coma Score: 21:15 Eye Response: spontaneous(4). Motor Response: obeys commands(6). Verbal Response: bm8 oriented(5). Total: 15. 23:02 Eye Response: spontaneous(4). Motor Response: obeys commands(6). Verbal Response: bm8 oriented(5). Total: 15. ED Course: 20:54 Patient arrived in ED. jj6 20:58 Triage completed. cm10 21:01 Sheri Adhikari FNP-C is PHCP. kb 21:01 Javy Jesus MD is Attending Physician. kb 21:01 Arm band placed on right wrist. Patient placed in an exam room, on a stretcher. cm10 21:14 Hill Bates, RN is Primary Nurse. bm8 21:15 Patient has correct armband on for positive identification. Bed in low position. Call bm8 light in reach. Side rails up X 1. Adult w/ patient. Client placed on continuous cardiac and pulse oximetry monitoring. NIBP monitoring applied. secured entrance monitor on. Pulse ox on. NIBP on. Door closed. Warm blanket given. Pillow given. Verbal reassurance given. 21:15 No provider procedures requiring assistance completed. bm8 21:45 XRAY Chest (1 view) In Process Unspecified. EDMS 21:45 Initial lab(s) drawn, by me, sent to lab. EKG done, by ED staff, reviewed by Sheri JIMÉNEZ COVID swab sent to lab. Flu and/or RSV swab sent to lab. Inserted saline lock: 20 gauge in left antecubital area, using aseptic technique. Blood collected. Flushed with 10 mL NS. 23:02 Provided Education on: post er care. bm8 23:02 IV discontinued, intact, bleeding controlled, No redness/swelling at site. Pressure bm8 dressing applied. Administered Medications: 21:45 Drug: MethylPrednisoLONE IVP 125 mg IVP once Route: IVP; Site: left antecubital; bm8 23:03 Follow up: Response: No adverse reaction bm8 21:45 Drug: Albuterol Inhalation 2.5 mg Inhalation once Route: Inhalation; bm8 23:03 Follow up: Response: No adverse reaction bm8 21:45 Drug: Ipratropium Inhalation Aerosol 0.5 mg Inhalation once Route: Inhalation; bm8 23:03 Follow up: Response: No adverse reaction bm8 Medication: 21:15 VIS not applicable for this client. bm8 Outcome: 22:35 Discharge ordered by . kb 23:02 Discharged to home ambulatory, bm8 23:02 Condition: stable 23:02 Discharge instructions given to patient, family, Instructed on discharge instructions, follow up and referral plans. no drinking with medication, no driving heavy equipment, medication usage, safety practices, Demonstrated understanding of instructions, follow-up care, medications, Prescriptions given X 3, 23:03 Patient left the ED. bm8 Signatures: Dispatcher [employer] EDMS Sheri Adhikari, Patria Gasca Clarissa, RN RN cm10 Hill Bates, RN RN bm8
--- NOTE | 2024-05-15 22:35 | EDPHYS ---
Physician Documentation [facility] Name: Kirstin Pena Age: 58 yrs Sex: Female : 1965 Arrival Date: 05/15/2024 Time: 20:52 Bed 2 Private MD: ED Physician Javy Jesus HPI: 05/15 22:56 This 58 yrs old Female presents to ER via Ambulatory with complaints of Shortness Of kb Breath. 22:56 Pt is a 58 year old female who presents for shortness of breath and cough that started kb at 1600 today. Reports history of asthma and she gets bronchitis about once a year. Reports chest tightness that is similar to previous episodes. Historical: - Allergies: 20:58 Codeine; cm10 - Home Meds: 20:58 Singulair 10 mg oral tablet [Active]; dexlansoprazole 60 mg oral capsule,delayed cm10 release,biphasic 1 cap daily [Active]; rosuvastatin 5 mg oral tablet 1 tab daily [Active]; fluoxetine 10 mg Oral cap 1 cap daily [Active]; estradiol 0.5 mg oral tablet 1 tabs daily [Active]; levocetirizine 5 mg oral tablet 1 tab daily [Active]; bupropion HCl 300 mg oral Tablet, Extended Release 24 hr 1 tab daily [Active]; - PMHx: 20:58 Asthma; Depression; GERD; cm10 - Immunization history:: Adult Immunizations up to date. - Infectious Disease History:: Denies. - Social history:: Smoking status: Patient denies any tobacco usage or history of. ROS: 22:53 Constitutional: As per HPI kb Exam: 22:53 Constitutional: This is a well developed, well nourished patient who is awake, alert, kb and in no acute distress. Head/Face: Normocephalic, atraumatic. ENT: Moist Mucous membranes Cardiovascular: Regular rate Skin: Warm, dry with normal turgor. Normal color. MS/ Extremity: Pulses equal, no cyanosis. Neurovascular intact. Full, normal range of motion. Neuro: Awake and alert, GCS 15, oriented to person, place, time, and situation. 22:53 ECG was reviewed by the Attending Physician. 22:53 Respiratory: the patient does not display signs of respiratory distress, Respirations: normal, Breath sounds: wheezing: expiratory that is mild, is scattered, Vital Signs: 20:57 BP 117 / 76; Pulse 110; Resp 24; Temp 97.1(IR); Pulse Ox 100% ; Weight 79.83 kg; Height cm10 5 ft. 6 in. ; Pain 0/10; 21:15 BP 116 / 79; Pulse 95; Resp 18; Temp 97.1; Pulse Ox 95% ; Pain 5/10; bm8 23:02 BP 120 / 79; Pulse 105; Resp 18; Temp 97.2; Pulse Ox 100% ; Pain 0/10; bm8 20:57 Body Mass Index 28.41 (79.83 kg, 167.64 cm) cm10 20:57 Pain Scale: Adult cm10 21:15 Pain Scale: Adult bm8 23:02 Pain Scale: Adult bm8 [place] Coma Score: 21:15 Eye Response: spontaneous(4). Motor Response: obeys commands(6). Verbal Response: bm8 oriented(5). Total: 15. 23:02 Eye Response: spontaneous(4). Motor Response: obeys commands(6). Verbal Response: bm8 oriented(5). Total: 15. MDM: 21:01 Medical Screening Exam initiated kb 22:55 Differential diagnosis: asthma, Bronchitis Chronic Obstructive Pulmonary Disease. Data kb reviewed: vital signs, nurses notes. I considered the following discharge prescriptions or medication management in the emergency department I discussed and recommended Over The Counter medications, Antibiotics: At this time antibiotics are not recommended. Counseling: I had a detailed discussion with the patient and/or guardian regarding the historical points, exam findings, and any diagnostic results supporting the discharge/admit diagnosis, lab results, radiology results, the need for outpatient follow up, a family practitioner, to return to the emergency department if symptoms worsen or persist or if there are any questions or concerns that arise at home. Response to treatment: the patient's symptoms have markedly improved after treatment. 05/15 21:14 Order name: Basic Metabolic Panel; Complete Time: 21:57 kb 05/15 21:14 Order name: CBC with Diff; Complete Time: 21:42 kb 05/15 21:14 Order name: Troponin HS; Complete Time: 21:57 kb 05/15 21:14 Order name: SARS-COV-2 Antigen Rapid; Complete Time: 21:58 kb 05/15 21:14 Order name: Flu; Complete Time: 21:58 kb 05/15 21:14 Order name: XRAY Chest (1 view); Complete Time: 21:57 kb 05/15 21:14 Order name: EKG; Complete Time: 21:15 kb 05/15 21:14 Order name: Cardiac monitoring; Complete Time: 21:29 kb 05/15 21:14 Order name: EKG - Nurse/Tech; Complete Time: 21:29 kb 05/15 21:14 Order name: IV Saline Lock; Complete Time: 21:29 kb 05/15 21:14 Order name: Labs collected and sent; Complete Time: 21:29 kb EC:53 Rate is 89 beats/min. Rhythm is regular. QRS [place] is Normal. DC interval is normal at kb 172 msec. QRS interval is normal at 90 msec. QT interval is normal at 459 msec. Administered Medications: 21:45 Drug: MethylPrednisoLONE IVP 125 mg IVP once Route: IVP; Site: left antecubital; bm8 23:03 Follow up: Response: No adverse reaction bm8 21:45 Drug: Albuterol Inhalation 2.5 mg Inhalation once Route: Inhalation; bm8 23:03 Follow up: Response: No adverse reaction bm8 21:45 Drug: Ipratropium Inhalation Aerosol 0.5 mg Inhalation once Route: Inhalation; bm8 23:03 Follow up: Response: No adverse reaction bm8 Disposition: 05/16 04:55 Co-signature as Attending Physician, Sheri JIMÉNEZ I agree with the assessment sp4 and plan of care. I reviewed the patient's care provided by the Advanced Practice Provider and agree with the diagnosis and treatment plan. Disposition Summary: 05/15/24 22:35 Discharge Ordered Notes: Location: Home kb Condition: Stable kb Diagnosis - Acute bronchitis, unspecified kb Followup: kb - With: Emergency Department - When: As needed - Reason: Worsening of condition Followup: kb - With: Private Physician - When: 2 - 3 days - Reason: Recheck today's complaints, Continuance of care, Re-evaluation by your physician Discharge Instructions: - Discharge Summary Sheet kb - Acute Bronchitis, Adult, [id number] kb Forms: - Medication Reconciliation Form kb - Antibiotic Education kb - Prescription Opioid Use kb - Patient Portal Instructions kb - Leadership Thank You Letter kb Prescriptions: - albuterol sulfate 90 mcg/actuation Inhalation HFA Aerosol Inhaler - inhale 2 puff INHALATION route every 4 to 6 hours As needed; 1 unit; Refills: kb 0, Product Selection Permitted - Prednisone 20 mg Oral Tablet - take 1 tablet ORAL route once daily for 5 days; 5 tablet; Refills: 0, Product kb Selection Permitted - Tessalon Perles 100 mg Oral Capsule - take 1 capsule ORAL route every 8 hours As needed; 15 capsule; Refills: 0, kb Product Selection Permitted Signatures: Dispatcher [employer] Sheri Hughes, Javy Beaver MD MD sp4 Michelle Noriega, RN RN cm10 Hill Bates, RN RN bm8
[2024-05-16 04:50] VITALS: BP 120/79; TEMP 97.2; O2SAT 100
--- NOTE | 2024-05-16 12:50 | EKG ---
Test Date: 2024-05-15 Test Time: 21:38:08 Mainframe Systems Programmer: DI MEASUREMENT RESULTS: Intervals: Rate: 89 MT: 172 QRSD: 90 QT: 378 QTc: 459 [place]: P: 65 MT: 172 QRS: 59 T: 70 INTERPRETIVE STATEMENTS: Normal sinus rhythm Normal ECG Compared to ECG 02/03/2021 14:54:50 No significant changes Electronically Signed On 05-16-24 12:48:46 CDT by Brock Rosario
== END 2024-05-15 23:03 | disposition home or self-care (01) ==
LOC: ER 20:52
DX: J20.9 Acute bronchitis, unspecified (principal); Z11.52 Encounter for screening for COVID-19
CPT/HCPCS: 93005; 85025; 80048; 36415; 84484; 87804 ×2; 71045; 96374; 99285; 87811; J7613; J7644; J2919

== ENCOUNTER 2024-05-23 12:28 | Emergency (ER) | payer OTHER ==
[2024-05-23] MEDS ORDERED: LEVALBUTEROL 1.25 MG/3 ML NEB ONE (13:22)
[2024-05-23] MEDS ORDERED: NA CHLORIDE 0.9% 1,000 ML ONE (13:22)
[2024-05-23 13:53] LABS: Absolute Eosinophils 0.1 K/uL (0-0.5); Absolute Lymphocytes (CBC) 2.3 K/uL (0.7-4.9); Absolute Monocytes 0.6 K/uL (0.1-1.3); Absolute Neutrophil 4.4 K/uL (1.8-8.0); Basophils % 0.5 % (0-1.3); Hematocrit 39.4 % (36.0-45.0); Hemoglobin 13.1 g/dL (12.0-15.0); Lymphocytes % 30.8 % (15.3-44.8); MCH 29.2 pg (27.0-35.0); MCHC 33.2 g/dL (32.0-36.0); MCV 87.9 fL (80-100); MPV 8.5 fL (7.6-11.3); Monocytes % 8.3 % (3.3-12.3); Neutrophils % 59.4 % (41.7-73.7); Platelets 255 thou/uL (152-406); RBC Red Blood Cell Count 4.48 M/uL (3.86-4.86); Red Cell Distribution Width 13.4 % (12.1-15.2)
[2024-05-23 14:18] LABS: ALT/SGPT 27 U/L (13-56); AST/SGOT 13 U/L (15-37); Albumin 3.4 g/dL (3.4-5.0); Albumin/Globulin Ratio 0.9 (1.1-1.8); Alkaline Phosphatase 95 U/L (45-117); Anion Gap 8.6 mEq/L (5.0-15.0); BUN Blood Urea Nitrogen 15 mg/dL (7-18); Bicarbonate 27 mEq/L (21-32); Bilirubin Direct < 0.2 mg/dL (0-0.2); Bilirubin Indirect, Calculated 0.4 mg/dL (0.2-0.8); Bilirubin Total 0.6 mg/dL (0.2-1.0); Globulin 3.6 g/dL (2.3-3.5); Glomerular Filtration Rate 59 ml/min (=/>90); Glucose Level 104 mg/dL (74-106); NT PRO-BNP 9 pg/mL (<125); Potassium 3.6 mEq/L (3.5-5.1); Sodium Level 139 mEq/L (136-145); Troponin High Sensitivity 5.1 pg/mL (<58.9)
--- NOTE | 2024-05-23 15:36 | RAD REPORT ---
EXAMINATION: ONE VIEW CHEST XR CLINICAL INDICATION: Female, 58 years old.,COUGH TECHNIQUE: Frontal chest projection is submitted. Examination is limited by patient positioning and t echnique. COMPARISON: 05/15/2024 FINDINGS: The lungs are well inflated and clear. No pneumothorax or sizable effusion. The heart is normal in s ize. Mediastinal contours are unremarkable. IMPRESSION: No acute intrathoracic abnormalities.
--- NOTE | 2024-05-23 15:45 | EDPHYS ---
Physician Documentation [facility] Name: Kirstin Pena Age: 58 yrs Sex: Female : 1965 Arrival Date: 05/23/2024 Time: 12:28 Bed 17 Private MD: ED Physician Alex Vincent HPI: 05/23 13:23 This 58 yrs old Female presents to ER via Ambulatory with complaints of Dizziness, rt Shortness Of Breath, Headache, Diarrhea, Cough. 13:23 Last week, patient was diagnosed bronchitis here, subsequently discharged, the patient rt follow-up with primary on Wednesday, was diagnosed with the flu at that time. Had worsening dyspnea today, went back to PCPs office, heart rate was noted to be in the 140s, did improve to 110s while in the office. She reports a mild amount of diarrhea which he attributes to starting Augmentin. Denies other acute complaints at this time, symptoms are moderate in severity, no other aggravating or alleviating factors.. Historical: - Allergies: 12:53 Codeine; iw - PMHx: 12:53 Asthma; Depression; GERD; iw - PSHx: 12:53 hysterectomy; Cholecystectomy; Appendectomy; iw - Immunization history:: Adult Immunizations not up to date. - Infectious Disease History:: Denies. - Social history:: Smoking status: Patient denies any tobacco usage or history of. - Family history:: not pertinent. ROS: 13:23 Constitutional: Negative for fever, chills, and weight loss, Cardiovascular: Negative rt for chest pain, palpitations, and edema, MS/Extremity: Negative for injury and deformity, Skin: Negative for injury, rash, and discoloration, Neuro: Negative for headache, weakness, numbness, tingling, and seizure, 13:23 Respiratory: Positive for cough, shortness of breath, 13:23 Abdomen/GI: Positive for diarrhea, Negative for abdominal pain, Exam: 13:23 Constitutional: This is a well developed, well nourished patient who is awake, alert, rt and in no acute distress. Head/Face: Normocephalic, atraumatic. Chest/axilla: Normal chest wall appearance and motion. Nontender with no deformity. No lesions are appreciated. Cardiovascular: Regular rate and rhythm with a normal S1 and S2. No gallops, murmurs, or rubs. Normal PMI, no JVD. No pulse deficits. Abdomen/GI: Soft, non-tender, with normal bowel sounds. No distension or tympany. No guarding or rebound. No evidence of tenderness throughout. Skin: Warm, dry with normal turgor. Normal color with no rashes, no lesions, and no evidence of cellulitis. MS/ Extremity: Pulses equal, no cyanosis. Neurovascular intact. Full, normal range of motion. Neuro: Awake and alert, GCS 15, oriented to person, place, time, and situation. Cranial nerves II-XII grossly intact. Motor strength 5/5 in all extremities. Sensory grossly intact. Cerebellar exam normal. Normal gait. 13:23 Respiratory: Faint wheezes heard in all lung howard, no respiratory distress, 14:07 ECG was reviewed by the Attending Physician. rt Vital Signs: 12:52 BP 119 / 91; Pulse 114; Resp 19; Temp 97; Pulse Ox 100% on R/A; Weight 79.38 kg; Height iw 5 ft. 6 in. ; 13:35 BP 111 / 71; Pulse 108; Resp 20; Pulse Ox 98% on R/A; ar6 15:54 BP 114 / 69; Pulse 92; Resp 18; Pulse Ox 100% on R/A; ar6 12:52 Body Mass Index 28.25 (79.38 kg, 167.64 cm) iw MDM: 12:58 Medical Screening Exam initiated rt 15:51 Differential diagnosis: Bronchitis, pneumonia, dysrhythmia. Data reviewed: vital signs, rt nurses notes, lab test result(s), EKG, radiologic studies. Consideration of Admission/Observation Escalation of care including admission/observation considered. Symptoms improving treatment in the ED, tachycardia is improving, patient is strongly desirous of discharge. Return precautions discussed.. I considered the following discharge prescriptions or medication management in the emergency department Medications were administered in the Emergency Department. See MAR. Independent interpretation of the following test(s) in the Emergency Department X-Ray: My interpretation is No pneumonia seen on my interpretation of x-ray images. Test considered but Not performed: CT: Low suspicion for pulmonary embolus, CT angiogram not indicated. Care significantly affected by the following chronic conditions: Asthma. Counseling: I had a detailed discussion with the patient and/or guardian regarding the historical points, exam findings, and any diagnostic results supporting the discharge/admit diagnosis, lab results, radiology results, the need for outpatient follow up, to return to the emergency department if symptoms worsen or persist or if there are any questions or concerns that arise at home. Response to treatment: the patient's symptoms have markedly improved after treatment. 05/23 12:59 Order name: Basic Metabolic Panel; Complete Time: 14:19 rt 05/23 12:59 Order name: CBC with Diff; Complete Time: 14:19 rt 05/23 12:59 Order name: LFT's; Complete Time: 14:19 rt 05/23 12:59 Order name: NT PRO-BNP; Complete Time: 14:19 rt 05/23 12:59 Order name: Troponin HS; Complete Time: 14:19 rt 05/23 12:59 Order name: XRAY Chest (1 view); Complete Time: 15:38 rt 05/23 12:59 Order name: Cardiac monitoring; Complete Time: 13:18 rt 05/23 12:59 Order name: EKG - Nurse/Tech; Complete Time: 14:06 rt 05/23 12:59 Order name: IV Saline Lock; Complete Time: 13:45 rt 05/23 12:59 Order name: Labs collected and sent; Complete Time: 13:45 rt 05/23 12:59 Order name: O2 Per Protocol; Complete Time: 13:18 rt 05/23 12:59 Order name: O2 Sat Monitoring; Complete Time: 13:18 rt EC:07 Rate is 97 beats/min. Rhythm is regular, Normal Sinus Rhythm with No ectopy. QRS [place] rt is Normal. TX interval is normal. QRS interval is normal. QT interval is normal. No Q waves. T waves are Normal. No ST changes noted. Interpreted by me. Administered Medications: 13:40 Drug: NS 0.9% IV 1000 ml IV at 1 bolus Per protocol; to be given as a bolus over 60 ar6 minutes Route: IV; Rate: 1 bolus; Site: right antecubital; 15:54 Follow up: Response: No adverse reaction; IV Status: Completed infusion; IV Intake: ar6 1000ml 13:40 Drug: Levalbuterol Inhalation 1.25 mg Inhalation once Route: Inhalation; ar6 15:54 Follow up: Response: No adverse reaction ar6 Disposition Summary: 05/23/24 15:44 Discharge Ordered Notes: Location: Home rt Problem: new rt Symptoms: have improved rt Condition: Stable rt Diagnosis - Acute bronchitis, unspecified rt Followup: rt - With: Private Physician - When: 2 - 3 days - Reason: Discharge Instructions: - Discharge Summary Sheet rt - Acute Bronchitis, Adult rt Forms: - Medication Reconciliation Form rt - Antibiotic Education rt - Prescription Opioid Use rt - Patient Portal Instructions rt - Leadership Thank You Letter rt Signatures: Dispatcher [employer] EDMS Zuly Delgado, RN RN iw Alex Vincent MD MD rt Racheal Crouch RN RN ar6 Corrections: (The following items were deleted from the chart) 13:00 13:00 BASIC METABOLIC PANEL+C.LAB.BRZ ordered. EDMS EDMS 13:00 13:00 CBC+H.LAB.BRZ ordered. EDMS EDMS 13:00 13:00 HEPATIC FUNCTION+C.LAB.BRZ ordered. EDMS EDMS 13:00 13:00 PROBNP+C.LAB.BRZ ordered. EDMS EDMS 13:00 13:00 Troponin High Sensitivity+C.LAB.BRZ ordered. EDMS EDMS 13:00 13:00 Chest Single View+RAD.RAD.BRZ ordered. EDMS EDMS
--- NOTE | 2024-05-23 15:45 | ER ---
Nurse's Notes [facility] Name: Kirstin Pena Age: 58 yrs Sex: Female : 1965 Arrival Date: 05/23/2024 Time: 12:28 Bed 17 Private MD: Diagnosis: Acute bronchitis, unspecified Presentation: 05/23 12:52 Chief complaint: Patient states: had bronchitis Wednesday and then the flu, my heart rate iw is high, my PCP thinks I might be dehydrated and I'm still SOB. Coronavirus screen: Client presents with at least one sign or symptom that may indicate coronavirus-19. Ebola Screen: No symptoms or risks identified at this time. Initial Sepsis Screen: Does the patient meet any 2 criteria? HR > 90 bpm. Does the patient have a suspected source of infection? No. Patient's initial sepsis screen is negative. Risk Assessment: Do you want to hurt yourself or someone else? Patient reports no desire to harm self or others. Onset of symptoms was May 15, 2024. 12:52 Method Of Arrival: Ambulatory iw 12:52 Acuity: TEOFILO 3 iw Historical: - Allergies: 12:53 Codeine; iw - PMHx: 12:53 Asthma; Depression; GERD; iw - PSHx: 12:53 hysterectomy; Cholecystectomy; Appendectomy; iw - Immunization history:: Adult Immunizations not up to date. - Infectious Disease History:: Denies. - Social history:: Smoking status: Patient denies any tobacco usage or history of. - Family history:: not pertinent. Screenin:35 [facility] ED Fall Risk Assessment (Adult) History of falling in the last 3 months, ar6 including since admission No falls in past 3 months (0 pts) Confusion or Disorientation No (0 pts) Intoxicated or Sedated No (0 pts) Impaired Gait No (0 pts) Mobility Assist Device Used No (0 pt) Altered Elimination No (0 pt) Score/Fall Risk Level 0 - 2 = Low Risk Oriented to surroundings, Maintained a safe environment, Educated pt \T\ family on fall prevention, incl call for assistance when getting out of bed, Hourly rounding (assess needs \T\ fall precautionary measures) done. Abuse screen: Denies threats or abuse. Denies injuries from another. Nutritional screening: No deficits noted. Tuberculosis screening: No symptoms or risk factors identified. Assessment: 13:35 General: Appears in no apparent distress. uncomfortable, ill, pt. reports ill since ar6 Wednesday of last week; reports seeing Dr. Limon and was positive for flu; reports symptoms were not improving and Dr. Limon sent her to ER. Behavior is calm, cooperative, appropriate for age. Pain: Denies pain. Neuro: Level of Consciousness is awake, alert, obeys commands, Oriented to person, place, time, situation. Cardiovascular: Rhythm is sinus tachycardia. Cardiovascular: Capillary refill < 3 seconds. Respiratory: Reports shortness of breath at rest on exertion Airway is patent Respiratory effort is even, unlabored, Breath sounds with wheezes bilaterally. GI: Abdomen is round non-distended, Reports nausea. : No signs and/or symptoms were reported regarding the genitourinary system. EENT: Oral mucosa is moist. Derm: Skin is intact, is healthy with good turgor, Skin is dry, Skin is pink, warm \T\ dry. Musculoskeletal: No signs and/or symptoms reported regarding the musculoskeletal system. Vital Signs: 12:52 BP 119 / 91; Pulse 114; Resp 19; Temp 97; Pulse Ox 100% on R/A; Weight 79.38 kg; Height iw 5 ft. 6 in. ; 13:35 BP 111 / 71; Pulse 108; Resp 20; Pulse Ox 98% on R/A; ar6 15:54 BP 114 / 69; Pulse 92; Resp 18; Pulse Ox 100% on R/A; ar6 12:52 Body Mass Index 28.25 (79.38 kg, 167.64 cm) iw ED Course: 12:31 Patient arrived in ED. im 12:31 Alex Vincent MD is Attending Physician. rt 12:53 Triage completed. iw 12:54 Arm band placed on. iw 13:18 Racheal Crouch, RN is Primary Nurse. ar6 13:35 Patient has correct armband on for positive identification. Placed in gown. Bed in low ar6 position. Call light in reach. Side rails up X 1. Provided Education on: plan of care. Client placed on continuous cardiac and pulse oximetry monitoring. NIBP monitoring applied. Door closed. Lights dimmed. Moved to private room. Warm blanket given. 13:45 Basic Metabolic Panel Sent. ar6 13:45 CBC with Diff Sent. ar6 13:45 LFT's Sent. ar6 13:45 NT PRO-BNP Sent. ar6 13:45 Troponin HS Sent. ar6 14:40 XRAY Chest (1 view) In Process Unspecified. EDMS 15:55 No provider procedures requiring assistance completed. IV discontinued, intact, ar6 bleeding controlled, No redness/swelling at site. Pressure dressing applied. Administered Medications: 13:40 Drug: NS 0.9% IV 1000 ml IV at 1 bolus Per protocol; to be given as a bolus over 60 ar6 minutes Route: IV; Rate: 1 bolus; Site: right antecubital; 15:54 Follow up: Response: No adverse reaction; IV Status: Completed infusion; IV Intake: ar6 1000ml 13:40 Drug: Levalbuterol Inhalation 1.25 mg Inhalation once Route: Inhalation; ar6 15:54 Follow up: Response: No adverse reaction ar6 Medication: 13:35 VIS not applicable for this client. ar6 Intake: 15:54 IV: 1000ml; Total: 1000ml. ar6 Outcome: 15:44 Discharge ordered by . rt 15:55 Discharged to home ambulatory, ar6 15:55 Condition: good 15:56 Discharge instructions given to patient, family, Instructed on discharge instructions, ar6 follow up and referral plans. Demonstrated understanding of instructions, follow-up care, 16:03 Patient left the ED. ar6 Signatures: Dispatcher [employer] Zuly Vuong, RN Alex Gleason MD MD rt Mendoza, Itzel im Roberts, Amber, RN RN ar6
[2024-05-23 16:17] VITALS: TEMP 97
[2024-05-23 16:19] VITALS: BP 114/69; O2SAT 100
--- NOTE | 2024-05-24 14:50 | EKG ---
Test Date: 2024-05-23 Test Time: 14:03:49 Animal Control Officer: VERITO MEASUREMENT RESULTS: Intervals: Rate: 97 MT: 158 QRSD: 88 QT: 360 QTc: 457 [place]: P: 69 MT: 158 QRS: 64 T: 77 INTERPRETIVE STATEMENTS: Normal sinus rhythm with sinus arrhythmia Normal ECG Compared to ECG 05/15/2024 21:38:08 No significant changes Electronically Signed On 05-24-24 14:46:19 CDT by Omega Luis
== END 2024-05-23 16:03 | disposition home or self-care (01) ==
LOC: ER 12:28
DX: J20.9 Acute bronchitis, unspecified (principal); R19.7 Diarrhea, unspecified
CPT/HCPCS: 85025; 80048; 36415; 80076; 84484; 83880; 71045; J7614; J7030; 93005; 96360; 96361; 99285